=== PATIENT | male | born 1985 | race Caucasian/White ===

== ENCOUNTER → 2022-03-19 16:44 | Outpatient (BNVA) | payer SELFPAY | PROVIDERS: Family Provider Counselor Professional; Visit Provider Emergency Medicine | DX: R10.10 Upper abdominal pain, unspecified (principal); M54.50 Low back pain, unspecified | CPT/HCPCS: 80053 ==

== ENCOUNTER 2023-08-16 14:20 | Inpatient (IN) | payer MEDICAID, SELFPAY ==
[2023-08-16 14:24] VITALS: BMI 22.8
[2023-08-16 14:26] VITALS: BP 148/98; PULSE 87; RESP 16; TEMP 36.6; O2SAT 98
--- NOTE | 2023-08-16 14:30 | ED.C_ITS ---
HPI - Psych 2 General: Chief Complaint: Psychiatric Symptoms Stated Complaint: SI/ MHE Time Seen by Provider: 08/16/23 14:22 Source: patient Mode of arrival: ambulatory Limitations: no limitations History of Present Illness: 37-year-old male states that history of bipolar disorder he states he has been out of his meds for quite some time has been having increasing loose [place] states has been seeing things he has been seeing wolves along with other items. Denies SI or HI but states that his hallucinations got much worse and he is voluntarily wanting to get help. Associated symptoms: Reports auditory hallucinations and visual hallucinations; Deny depression Review of Systems 2 Const: Denies: fever(s), chills, body aches or change in appetite ENMT: Denies: throat pain or dental pain Card: Denies: chest pain Resp: Denies: dyspnea GI: Denies: abdominal pain, nausea, vomiting or diarrhea Musc: Denies: neck pain or back pain Skin/Breast: Denies: rash Neuro: Denies: headache(s) Psych: Reports: visual hallucinations and auditory hallucinations; Denies: depression PFSH ED 2 PFSH: Social History Smoking and tobacco/nicotine status: former use of tobacco/nicotine Alcohol intake: never Substance/Drug Use: never Current gender identity: Male Physical Exam 2 Const: COMMON NORMALS: no acute distress, patient oriented x3 and healthy appearing HENMT: COMMON NORMALS: normocephalic and atraumatic HEAD & SCALP: n ormocephalic and atraumatic Eye: COMMON NORMALS: Equal, round and reactive pupils present and EOMs intact bilaterally PUPIL: Yes Equal, round and reactive pupils present Neck/C-Spine: COMMON NORMALS: full ROM and supple Chest: COMMONS NORMALS: normal inspection of the chest Resp: COMMON NORMALS: normal respiratory effort Cardio: COMMON NORMALS: regular rate, regular rhythm and No murmurs present (Cardio) RATE: regular rate RHYTHM: regular rhythm Extremity: COMMON NORMALS: normal to inspection and full ROM Neuro: COMMON NORMALS: patient oriented x3, moves all extremities and no focal motor deficits Psych: COMMON NORMALS: mental status grossly normal, Normal thought process present and cooperative ATTITUDE: Yes paranoid THOUGHT PROCESS: Normal thought process present THOUGHT CONTENT: Yes Hallucination(s) present Skin: COMMON NORMALS: no rashes or lesions noted and no wounds GENERAL SKIN EXAM: no rashes or lesions noted Course 2 Vital Signs: Vital signs: Vital Signs Temperature 97.8 F 08/16/23 14:26 Pulse Rate 87 08/16/23 14:26 Respiratory Rate 16 08/16/23 15:51 Blood Pressure 148/98 08/16/23 14:26 Pulse Oximetry 98 08/16/23 14:26 Oxygen Delivery Me thod Room Air 08/16/23 14:26 MDM - Psych Medical Decision Making Patient presents here with hallucinations history of bipolar he is medically cleared he is voluntarily wanting admission spoke to psychiatrist will admit. Medical Records I reviewed the patient's medical records. Lab Data I reviewed the patient's lab results. 08/16/23 14:52 08/16/23 14:52 Laboratory Results WBC 6.29 10^3/uL (3.29-11.43) 08/16/23 14:52 RBC 5.21 10^6/uL (3.85-5.65) 08/16/23 14:52 Hgb 16.70 g/dL (11.27-16.99) 08/16/23 14:52 Hct 47.2 % (37-53) 08/16/23 14:52 MCV 90.6 fl (82-101) 08/16/23 14:52 MCH 32.1 pg (27-33) 08/16/23 14:52 MCHC 35.4 g/dL (30-55) 08/16/23 14:52 RDW 12.7 % (12.1-15.1) 08/16/23 14:52 Plt Count 145 10^3/cmm (157-399) L 08/16/23 14:52 MPV 9.0 fL (7.4-10.4) 08/16/23 14:52 Neut % (Auto) 65.1 % 08/16/23 14:52 Lymph % (Auto) 25.6 % 08/16/23 14:52 [place] % (Auto) 7.8 % 08/16/23 14:52 Eos % (Auto) 0.5 % 08/16/23 14:52 Baso % (Auto) 0.5 % 08/16/23 14:52 Neut # (Auto) 4.10 10^3/uL (1.8-7.7) 08/16/23 14:52 Lymph # (Auto) 1.6 10^3/uL (0.8-4.8) 08/16/23 14:52 [place] # (Auto) 0.5 10^3/uL (0.2-0.9) 08/16/23 14:52 Eos # (Auto) 0.0 10^3/uL (0.0-0.8) 08/16/23 14:52 Baso # (Auto) 0.0 10^3/uL (0.0-0.1) 08/16/23 14:52 Nucleated RBC % (auto) 0 % 08/16/23 14:52 Nucleated RBCs # 0.0 /100WBC 08/16/23 14:52 Sodium 135 mmol/L (136-145) L 08/16/23 14:52 Potassium 4.0 mmol/L (3.5-5.1) 08/16/23 14:52 Chloride 100 mmol/L (98-107) 08/16/23 14:52 Carbon Dioxide 26 mmol/L (22-29) 08/16/23 14:52 Anion Gap 13.0 (5-19) 08/16/23 14:52 BUN 9 mg/dL (6-20) 08/16/23 14:52 Creatinine 0.7 mg/dL (0.7-1.2) 08/16/23 14:52 GFR Calculation 126.9 mL/min (90-130) 08/16/23 14:52 Glucose 101 mg/dL (65-115) 08/16/23 14:52 Calculated Osmolality 279 mOsm/kg (285-295) L 08/16/23 14:52 Calcium 9.6 mg/dL (8.5-10.5) 08/16/23 14:52 Total Bilirubin 0.5 mg/dL (0.15-1.2) 08/16/23 14:52 AST 48 U/L (0-40) H 08/16/23 14:52 ALT 65 U/L (0-41) H 08/16/23 14:52 Alkaline Phosphatase 127 U/L (40-130) 08/16/23 14:52 Total Protein 7.3 g/dL (6.6-8.7) 08/16/23 14:52 Albumin 4.4 g/dL (3.5-5.2) 08/16/23 14:52 Globulin 2.9 g/dL (1.3-4.6) 08/16/23 14:52 Salicylates < 0.3 mg/dL (3-10) L 08/16/23 14:52 Urine Opiates Screen Negative ng/mL (Negative) 08/16/23 14:32 Acetaminophen < 5.0 ug/mL (10-30) L 08/16/23 14:52 Ur Barbiturates Screen Negative ng/mL (Negative) 08/16/23 14:32 Ur Phencyclidine Scrn Negative ng/mL (Negative) 08/16/23 14:32 Ur Amphetamines Screen Negative ng/mL (Negative) 08/16/23 14:32 U Benzodiazepines Scrn Negative ng/mL (Negative) 08/16/23 14:32 Urine Cocaine Screen Negative ng/mL (Negative) 08/16/23 14:32 U Marijuana (THC) Screen Negative ng/mL (Negative) 08/16/23 14:32 Ethyl Alcohol < 10 mg/dL (0-10) 08/16/23 14:52 No radiology studies performed this visit Discharge Plan Discharge Patient Disposition: Admitted As Inpatient Admit Provider: Marcel Soria Clinical Impression: Hallucination Condition: Stable Coding Level of Care Code ED Animal Impersonator for Raimundo Mathew
[2023-08-16 14:40] VITALS: RESP 16
[2023-08-16 15:00] LABS: Basophils % 0.5 %; Eosinophils % 0.5 %; Hematocrit 47.2 % (37-53); Lymphocytes # 1.6 10^3/uL (0.8-4.8); Lymphocytes % 25.6 %; Mean Corpuscular HGB Conc 35.4 g/dL (30-55); Mean Corpuscular Hemoglobin 32.1 pg (27-33); Mean Corpuscular Volume 90.6 fl (82-101); Monocytes # 0.5 10^3/uL (0.2-0.9); Monocytes % 7.8 %; Neutrophils % 65.1 %; Nucleated Red Blood Cells % 0 %; Platelet Count 145 10^3/cmm (157-399); Red Blood Count 5.21 10^6/uL (3.85-5.65); Red Cell Distribution Width 12.7 % (12.1-15.1); White Blood Count 6.29 10^3/uL (3.29-11.43)
[2023-08-16 15:02] LABS: Amphetamines Screen Urine Negative (Negative); Barbiturates Screen Urine Negative (Negative); Benzodiazepines Screen Urine Negative (Negative); Cocaine Screen Urine Negative (Negative); Opiate Screen Urine Negative (Negative); PCP Screen Urine Negative (Negative); THC Screen Urine Negative (Negative)
[2023-08-16 15:25] LABS: Alanine Aminotransferase 65 U/L (0-41); Albumin Level 4.4 g/dL (3.5-5.2); Alkaline Phosphatase 127 U/L (40-130); Aspartate Amino Transferase 48 U/L (0-40); Blood Urea Nitrogen 9 mg/dL (6-20); Calcium 9.6 mg/dL (8.5-10.5); Carbon Dioxide 26 mmol/L (22-29); Chloride 100 mmol/L (98-107); Globulin 2.9 g/dL (1.3-4.6); Glomerular Filtration Rate 126.9 mL/min (90-130); Glucose 101 mg/dL (65-115); Osmolality Calculated 279 mOsm/kg (285-295); Sodium 135 mmol/L (136-145); Total Bilirubin 0.5 mg/dL (0.15-1.2); Total Protein 7.3 g/dL (6.6-8.7)
[2023-08-16 15:26] LABS: Acetaminophen < 5.0 ug/mL (10-30); Alcohol Level < 10 mg/dL (0-10); Salicylate < 0.3 mg/dL (3-10)
[2023-08-16 15:51] VITALS: RESP 16
[2023-08-16 16:08] VITALS: BP 142/96; PULSE 91; RESP 18; TEMP 36.3; O2SAT 98
[2023-08-16] MEDS: nicotine 4 mg lozenge MUCOUS MEM (17:11)
[2023-08-16] MEDS: acetaminophen 325 mg Tablet 650 MG PO (19:45)
[2023-08-16] MEDS: hyDROXYzine 25 mg Capsule 50 MG PO (19:45)
[2023-08-16] MEDS: trazodone 50 mg Tablet PO (19:45)
--- NOTE | 2023-08-16 20:24 | PC.NURSE ---
IN DAY ROOM WATCHING TV CALMLY. PT DENIES SI/HI AT THIS TIME. DOES ENDORSES HEARING VOICES THAT ARE POSITIVE OR CHATTERING AT TIMES. ALSO ENDORSES SEEING PEOPLE IN THE [place] AT TIMES. PT REPORTS ANXIETY 6/10 AND DEPRESSION 2/10. PT WAS GIVEN VISTARIL 50 MG FOR ANXIETY, ALSO REQUESTS MEDICATION TO HELP HIM SLEEP, TRAZODONE 50 MG ORDERED GIVEN FOR INSOMNIA. PT REPORTED RIB PAIN 7/10 TYLENOL 650 MG WAS GIVEN FOR PAIN. PT SPEAKS OPENLY ABOUT AVH TO RN, REPORTS THIS HAS BEEN MY NORM FOR AWHILE. PT INFORMED THAT HE WOULD SEE DR. BULLARD TOMORROW AND THEY WOULD DISCUSS MEDICATIONS. PT AT EASE. WENT BACK TO WATCHING TV. ALL QUESTIONS ANSWERED AND SUPPORT VOICED.
[2023-08-16 20:47] VITALS: BP 123/81; PULSE 84; RESP 16; TEMP 36.6; O2SAT 97
[2023-08-17 06:00] VITALS: RESP 15
[2023-08-17] MEDS: nicotine 21 mg Patch 1 PATCH TRANSDERMA (11:18)
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
[2023-08-17 14:00] VITALS: BP 138/80; PULSE 87; RESP 14; TEMP 36.3; O2SAT 99
[2023-08-17] MEDS: ibuprofen 600 mg Tablet PO (15:30)
[2023-08-17] MEDS: benzocaine 20% 7 gm 1 APPLIC MUCOUS MEM (16:02)
[2023-08-17] MEDS: nicotine 2 mg Gum BUCCAL ×2 (16:03→18:11)
[2023-08-17 19:56] VITALS: BP 117/66; PULSE 88; RESP 16; O2SAT 96
[2023-08-17] MEDS: haloperidol 5 mg Tablet PO (20:27)
[2023-08-17] MEDS: trazodone 50 mg Tablet PO (20:27)
[2023-08-17] MEDS: acetaminophen 325 mg Tablet 650 MG PO (20:28)
--- NOTE | 2023-08-17 20:39 | PC.NURSE ---
IN ROOM RESTING. DENIES SI/HI AND AVH AT THIS TIME. REPORTS RIB PAIN 3/10, TYLENOL 650 MG GIVEN ORDERED FOR PAIN. PT RATES ANXIETY 7/10 AND STATES HE IS AFRAID THE VOICES WILL COME BACK AND I WILL START SEEING PEOPLE IN THE WALL. PT WAS GIVEN HALDOL 5 MG ORDERED FOR INCREASED ANXIETY. PT REQUEST SLEEP MEDICATIONS, TRAZODONE 50 MG GIVEN ORDERED FOR INSOMNIA. RATES DEPRESSION 0/10. ALL QUESTIONS ANSWERED AND SUPPORT VOICED.
[2023-08-18] MEDS: nicotine 21 mg Patch 1 PATCH TRANSDERMA (09:11)
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
[2023-08-18 13:34] VITALS: BP 117/66; PULSE 88; RESP 16; O2SAT 96
[2023-08-18 14:00] VITALS: BP 129/85; PULSE 94; RESP 14; TEMP 36.6; O2SAT 98
== END 2023-08-18 17:08 | disposition home or self-care (01) | DRG 897 ==
LOC: ER 15:11 → NP 15:33
PROVIDERS: Admitting Provider Psychiatry & Neurology Psychiatry; Emergency Provider Emergency Medicine; Visit Provider Psychiatry & Neurology Psychiatry
DX: F10.151 Alcohol abuse with alcohol-induced psychotic disorder with hallucinations (principal); F32.A Depression, unspecified; Z87.891 Personal history of nicotine dependence; F90.9 Attention-deficit hyperactivity disorder, unspecified type; F43.10 Post-traumatic stress disorder, unspecified; F60.2 Antisocial personality disorder; Z81.8 Family history of other mental and behavioral disorders
CPT/HCPCS: 80053; 80306; 80307; 82274; 85025; 97150; 97165; 99285